=== PATIENT | female | born 1970 | race Caucasian/White ===

== ENCOUNTER 2017-01-10 11:53 | Emergency (ER) | payer OTHER ==
[~2017-01-10] VITALS: Ht 160 cm; Wt 75.2 kg
[2017-01-10 14:01] VITALS: BP 131/75
== END 2017-01-10 14:03 | disposition home or self-care (01) ==
LOC: EME 11:53
DX: S20.211A Contusion of right front wall of thorax, initial encounter (principal); S40.021A Contusion of right upper arm, initial encounter; V18.0XXA Pedal cycle driver injured in noncollision transport accident in nontraffic accident, initial encounter
CPT/HCPCS: 71020; 73090; 99281; 99284